=== PATIENT | male | born 1975 | race Caucasian/White ===

== ENCOUNTER 2024-07-23 12:04 | Emergency (ER) | payer BC, SELFPAY ==
[2024-07-23 12:09] VITALS: BP 126/84
--- NOTE | 2024-07-23 12:24 | ED.GENMED ---
History of Present Illness
General
Chief Complaint: Chest Pain
Source: patient
Exam Limitations: none
Time Seen by Provider: 07/23/24 12:17
History of Present Illness
History of Present Illness:
48-year-old male otherwise healthy presents with the onset of chest pain that started around 10 PM last evening. Starts in lower chest and radiates up.'s been constant since it started. It started shortly after having a meal for [employer]. The
pain is made worse with motion and deep breathing. He denies abdominal pain nausea or vomiting. He is seen at an urgent care was sent here for further evaluation. No recent car trips or plane rides. No leg swelling or calf pain. Pain does not
radiate to the back. No other complaints at this time
Phy Exam
Physical Exam
Physical Exam:
General: Well-appearing male no acute respiratory distress
HEENT: Normocephalic atraumatic
Heart: Regular rate and rhythm no murmur
Lungs: Clear no wheeze
Abdomen is soft nontender nondistended no guarding rebound no bowel sounds
Extremities: No cyanosis or edema no calf tenderness
Scores
Heart Score for Chest Pain Patients
STEMI patient?: No
History: Slightly or Non-Suspicious
ECG: Normal
Age: >45 - <65 years
Risk Factors: No Risk Factors
Troponin: </= Normal Limit
Heart Score for Chest Pain Patients: 1
Heart Score Risk: 2.5% MACE over next 6 weeks
Course
Orders/Labs/Results
Orders:
Orders
07/23/24 12:06
Electrocardiogram (*1) Urgent
Reason for Study: Chest Pain
EKG- Treatment ONCE
07/23/24 12:23
CR Chest - 2 Views Urgent
Comment:
Reason For Exam: chest pain
07/23/24 12:35
Complete Blood Count/With Diff Urgent
Comprehensive Metabolic Panel Urgent
D-Dimer Urgent
Lipase Urgent
Troponin I Urgent
07/23/24 13:29
Mag Hydrox/Al Hydrox/Simeth [Maalox] 30 ml Phenobarb/Hyoscy/Atropine/Scop [] 10 ml PO NOW
07/23/24 13:38
Mag Hydrox/Al Hydrox/Simeth [Maalox] 30 ml .ROUTE .STK-MED ONE
Phenobarb/Hyoscy/Atropine/Scop [] 10 ml .ROUTE .STK-MED ONE
Abnormal Lab Results
07/23/24
12:35
RBC 4.68 L 10^6/uL
(4.70-6.10)
Absolute Neuts (auto) 8.4 H 10^3/uL
(1.4-6.5)
Absolute Lymphs (auto) 1.1 L 10^3/uL
(1.2-3.4)
Absolute Monos (auto) 0.9 H 10^3/uL
(0.1-0.6)
Neutrophils % 79.7 H %
(42.2-75.2)
Lymphocytes % 10.7 L %
(20.5-51.1)
Glucose 122 H mg/dl
(70-99)
Total Bilirubin 1.4 H mg/dl
(0.2-1.3)
07/23/24 12:35
07/23/24 12:35
Vital Signs
Initial and Last Documented VS:
Initial Vital Signs
Temp Pulse Resp BP Pulse Ox
98.8 F 77 16 126/84 98
07/23/24 12:09 07/23/24 12:09 07/23/24 12:09 07/23/24 12:09 07/23/24 12:09
Last Documented Vital Signs
Temp Pulse Resp BP Pulse Ox
98.8 F 70 16 123/73 98
07/23/24 12:09 07/23/24 14:00 07/23/24 14:00 07/23/24 13:00 07/23/24 12:47
MDM/Problems Addressed
Differential Diagnosis Includes:
Chest pain. Consider ACS versus reflux versus PE versus pancreatitis.
EKG shows sinus rhythm with early repolarization a first-degree AV block no ischemic changes otherwise
Will check labs including troponin D-dimer and lipase. X-ray pending. Patient is otherwise healthy.
*Critical Care Note
Total Time (30-74mins, 75-104mins- exclusive of procedures): Not Applicable
Update Note
Update Note:
Patient notes some improvement after GI cocktail. Troponin undetectable D-dimer undetectable. No signs of ACS or acute pulmonary issue. Chest x-ray is clear. Suspect possible reflux. Recommended PPI and follow-up. Stable for the
ED Attending Note
-
Portions of this chart may have been created with voice recognition software.� Occasional wrong word or��sound alike� substitutions may have occurred due to the inherent limitations of voice recognition software.
Discharge Plan
Departure
Patient Disposition: Home (Routine Discharge)
Date of Disposition: 07/23/24
Time of Disposition: 14:26
Patient with high blood pressure during this ER visit?: No
Discharge Problem:
Chest pain
Instructions: Chest Pain PCP Follow Up
Prescriptions:
No Action
No Current Medications
0
Referrals:
Jorge Albarado MD [Family Provider] -
Activity Restrictions/Additional Instructions:
Return here for worsening symptoms otherwise follow-up with your doctor
Interventions
Interventions:
*Risk Screen - Suicide Last Done: 07/23/24 12:09
*General Assessment Last Done: 07/23/24 12:09
*Neglect/Abuse Screening Last Done: 07/23/24 12:09
*ED- Fall Risk Assessment Last Done: 07/23/24 12:47
*ED COVID-19 Vaccine History Last Done: 07/23/24 12:09
ED- Cardiac Assessment Last Done: 07/23/24 12:47
Discharge Date and Time
Print Language: FINNISH
[2024-07-23 12:37] VITALS: BP 117/81
[2024-07-23 12:46] VITALS: BMI 27.4
[2024-07-23 12:53] LABS: % Basophils 0.3 % (0-2); % Eosinophils 0.4 % (0-6); % Immature Granulocytes 0.3 % (0-0.5); % Lymphocytes 10.7 % (20.5-51.1); % Monocytes 8.6 % (1.7-9.3); % Neutrophils 79.7 % (42.2-75.2); Absolute Lymphocytes 1.1 10^3/uL (1.2-3.4); Absolute Monocytes 0.9 10^3/uL (0.1-0.6); Absolute Neutrophils 8.4 10^3/uL (1.4-6.5); Hemoglobin 14.2 g/dL (13.0-18.0); Mean Corp Hgb Conc. 35.5 g/dL (33.0-37.0); Mean Corpuscular Hgb 30.3 pg (27.0-31.0); Mean Corpuscular Volume 85.5 fL (80.0-94.0); Mean Platelet Volume 10.1 fL (7.4-10.4); Nucleated Red Blood Cells % 0 % (-); Platelet Count 156 10^3/uL (130-400); Red Blood Cell Count 4.68 10^6/uL (4.70-6.10); Red Cell Dist. Width 12.8 % (11.5-14.5); White Blood Cell Count 10.6 10^3/uL (4.8-10.8)
[2024-07-23 12:58] LABS: ALT (SGPT) 26 U/L (0-50); AST (SGOT) 24 U/L (17-59); Albumin 4.3 g/dl (3.5-5.0); Alkaline Phosphatase 76 U/L (38-126); Blood Urea Nitrogen 13 mg/dl (9-20); Calcium 9.4 mg/dl (8.4-10.2); Carbon Dioxide 29 mmol/L (22-30); Chloride 105 mmol/L (98-107); Estimated Creatinine Clearance > 125 ml/min; Glucose 122 mg/dl (70-99); Lipase 70 U/L (23-300); Potassium 4.4 mmol/L (3.5-5.1); Sodium 140 mmol/L (135-145); Total Bilirubin 1.4 mg/dl (0.2-1.3); Total Protein 6.8 g/dl (6.3-8.2); eGFR > 60.00
[2024-07-23 13:00] VITALS: BP 123/73
[2024-07-23 13:10] LABS: Troponin I < 0.012 ng/ml
[2024-07-23 13:14] LABS: D-Dimer < 0.27 ug/mlFEU (0.00-0.50)
[2024-07-23] MEDS: MAALOX 40 PO (13:41)
== END 2024-07-23 14:57 | disposition home or self-care (01) ==
LOC: EMR 12:04
PROVIDERS: Physician Assistant; EMERGENCY PHYSICIAN Emergency Medicine; FAMILY PHYSICIAN Internal Medicine
DX: R07.89 Other chest pain (principal)
CPT/HCPCS: 99285; 71046; 80053; 83690; 84484; 85025; 85379; 93005